=== PATIENT | male | born 1990 | race Caucasian/White ===

== ENCOUNTER 2019-09-03 23:13 | Emergency (ER) | payer BC, OTHER ==
[2019-09-03 23:42] VITALS: TEMP 98.2
[2019-09-03] MEDS ORDERED: PROPARACAINE 0.5% OPHTH DROPS 15 ML BTL LEFT EYE STA (23:44)
[2019-09-04] MEDS ORDERED: FLUORESCEIN STRIPS 1 MG STRIP LEFT EYE ONE (00:31)
[2019-09-04] MEDS ORDERED: CYCLOPENTOLATE 1% OPHTH SOLN 2 ML BTL LEFT EYE STA (00:45)
[2019-09-04] MEDS ORDERED: prednisoLONE ACETATE 1% OPHTH DROPS 5 ML BTL LEFT EYE STA (00:46)
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
[2019-09-04 01:55] VITALS: BP 139/86; PULSE 90; RESP 18
== END 2019-09-04 01:54 | disposition home or self-care (01) ==
LOC: EC 23:13
DX: S05.12XA Contusion of eyeball and orbital tissues, left eye, initial encounter (principal); Y24.0XXA Airgun discharge, undetermined intent, initial encounter
CPT/HCPCS: 99283

== ENCOUNTER → 2024-07-31 | Outpatient (CLI) | payer BC ==
[2024-07-31 16:39] LABS: Amphetamine Screen,Urine Not Detected (NotDetected); Barbiturate Screen,Urine Not Detected (NotDetected); Benzodiazepines Screen,Urine Not Detected (NotDetected); Cocaine Screen,Urine Not Detected (NotDetected); Methadone Screen, Urine Not Detected (NotDetected); Opiate Screen,Urine Not Detected (NotDetected); Oxycodone Screen, Urine Not Detected (NotDetected); Partial Thromboplastin Time 23.9 sec (22.0-30.0); Phencyclidine Screen,Urine Not Detected (NotDetected); Prothrombin Time 10.6 sec (10.0-12.5); Tricyclic Antidepressant,Urine Not Detected (NotDetected); Urn Cannabinoid Scrn Not Detected (NotDetected)
[2024-08-01 02:32] LABS: HCT 41.5 % (39.6-50.0); HGB 13.4 g/dL (13.0-17.0); MCH 28.2 pg (27.0-32.0); MCHC 32.3 g/dL (32.0-37.0); MCV 87.4 FL (80.0-97.0); NRBC Per 100 WBC 0 X 10*3/uL (0.00-0.01); Platelet Count 266 X 10*3/uL (140-440); RBC 4.75 X 10*6/uL (4.40-5.60); RDW 13.3 % (11.5-14.5); WBC 8.96 X 10*3/uL (4.50-10.00)
[2024-08-01 03:55] LABS: Prealbumin 22.7 mg/dL (18.0-42.0)
[2024-08-01 04:16] LABS: % Iron Saturation 11.69 (15.00-50.00); ALT 43 U/L (10-49); AST 32 U/L (14-35); Albumin 4.4 g/dL (3.8-4.9); Albumin/Globulin Ratio 1.47 Ratio (1.60-3.17); Alkaline Phosphatase 85 U/L (41-126); BUN/Creat Ratio 14.33 Ratio (12.00-20.00); Blood Urea Nitrogen 12.9 mg/dL (9.0-27.0); Calcium 9.6 mg/dL (8.7-10.3); Carbon Dioxide 23.6 mmol/L (21.6-31.8); Chloride 103 mmol/L (96-109); Chol/HDL Ratio 3.26 Ratio; Glucose 89 mg/dL (70-110); Iron 45 UG/DL (65-175); LDL Cholesterol,Calculated 63.2 mg/dL (0.0-131.0); Phosphorus 3.5 mg/dL (2.4-5.1); Potassium 4.3 mmol/L (3.5-5.5); Sodium 141 mmol/L (135-145); Total Bilirubin 0.2 mg/dL (0.3-1.2); Total Iron Binding Capacity 385 UG/DL (228-460); Total Protein 7.4 g/dL (6.2-8.2)
== END | disposition home or self-care (01) ==
LOC: LABPAT 14:48
PROVIDERS: ATTEND Surgery Plastic and Reconstructive Surgery
DX: E89.1 Postprocedural hypoinsulinemia (principal); D50.8 Other iron deficiency anemias; K91.2 Postsurgical malabsorption, not elsewhere classified; E44.0 Moderate protein-calorie malnutrition; E44.1 Mild protein-calorie malnutrition; E45 Retarded development following protein-calorie malnutrition; E55.9 Vitamin D deficiency, unspecified; K74.1 Hepatic sclerosis; N19 Unspecified kidney failure; T56.894A Toxic effect of other metals, undetermined, initial encounter; K50.90 Crohn's disease, unspecified, without complications
CPT/HCPCS: 80053; 80061; 80306; 80323; 82306; 82525; 82607; 82728; 82746; 83036; 83540; 83550; 83735; 83970; 84100; 84134; 84255; 84425; 84443; 84590; 84630; 85027; 85610; 85730; 93005

== ENCOUNTER → 2024-07-31 | Outpatient (CLI) | payer BC ==
[2024-07-31 13:43] VITALS: BP 131/88; PULSE 86; RESP 16; TEMP 98; BMI 49.4
--- NOTE | 2024-07-31 14:41 | P.HPBAR ---
Bariatric H&P - History & Physicial H&P Date: 07/31/24 History & Physicial: Visit/CC: New Pt Patient initial contact: Initial weight: 173.272 kg Initial weight in pounds: 382.00 Height: 6 ft 1.75 in Initial BMI: 49.4 Last weight: Current weight: 173.272 kg Current weight in pounds: 382.00 Current BMI: 49.4 Carmichael body weight (based on NIH guidelines): 85.502 kg Excess body weight loss: 0.0% The patient is a 34 year-old M who presents for Bariatric Assessment. Get full labs. Schedule for EGD. He is looking into the sleeve. Was thinking potential bypass. He is doing my fitness pal. Protein is under 62 gram daily. Past Medical History Past Medical History: No Reported History History of Any Multi-Drug Resistant Organisms: None Reported Past Surgical History: Hernia Repair Additional Past Surgical History / Comment(s): vastectomy Smoking Status: Unknown if ever smoked Surgical - Exam Vital Signs Temp Pulse Resp BP 98 F 86 16 131/88 07/31/24 13:40 07/31/24 13:40 07/31/24 13:40 07/31/24 13:40 Bariatric Checklist Checklist: Plan: Checklist: EGD: 1. Hiatal hernia: 2. H. Pylori: HgbA1c: Vitamin D: Smoking: Never smoker Primary care physician referral: Yanira Clark Psychiatry clearance: Cardiology clearance: Sleep study: Diet journal: VTE risk score: VTE risk level: Rehab needs at discharge:
== END ==
LOC: BARWHC3 13:00
PROVIDERS: ATTEND Surgery Plastic and Reconstructive Surgery
DX: E66.01 Morbid (severe) obesity due to excess calories (principal); Z68.42 Body mass index [BMI] 45.0-49.9, adult
CPT/HCPCS: 99202

== ENCOUNTER 2024-08-26 06:49 | Day surgery (SDC) | payer BC ==
[2024-08-22 15:43] VITALS: BMI 47.5
[~2024-08-26 06:49] MED LIST: LACTATED RINGERS 1,000 ML IV SCH; LIDOCAINE 1% (10MG/ML) FOR IV START INTRADERMA PRN
[2024-08-26] MEDS: IV FLUID CONTINUATION 1,000 ML IV ONE (07:09)
[2024-08-26 07:29] VITALS: TEMP 98.1
[2024-08-26] MEDS ORDERED: PROPOFOL 10 MG/ML 20 ML VIAL IV ONE (07:30)
--- NOTE | 2024-08-26 07:37 | P.GSHP ---
History of Present Illness H&P Date: 08/26/24 CHIEF COMPLAINT: GERD HISTORY OF PRESENT ILLNESS: The patient is a 34-year-old male who presents reports gastroesophageal reflux disease. Upper endoscopy was offered for further evaluation and management. PAST MEDICAL HISTORY: Please see list. PAST SURGICAL HISTORY: Please see list. MEDICATIONS: Please see list. ALLERGIES: Please see list. SOCIAL HISTORY: No illicit drug use FAMILY HISTORY: No reports of Crohn disease or ulcerative colitis. REVIEW OF ORGAN SYSTEMS: CONSTITUTIONAL: No reports of fevers or chills. GI: Denies any blood in stools or constipation. PHYSICAL EXAM: VITAL SIGNS: Stable GENERAL: Well-developed and pleasant in no acute distress. HEENT: No scleral icterus. Extraocular movements grossly intact. Moist buccal mucosa. NECK: Supple without lymphadenopathy. CHEST: Unlabored respirations. Equal bilateral excursions. CARDIOVASCULAR: Regular rate and rhythm. Distal 2+ pulses. ABDOMEN: Soft, nondistended. MUSCULOSKELETAL: No clubbing, cyanosis, or edema. ASSESSMENT: 1. Gastroesophageal reflux disease PLAN: 1. Recommend proceeding with an upper endoscopy Past Medical History Past Medical History: No Reported History History of Any Multi-Drug Resistant Organisms: None Reported Past Surgical History: Hernia Repair, Orthopedic Surgery Additional Past Surgical History / Comment(s): vastectomy, ankle bone spur Past Anesthesia/Blood Transfusion Reactions: No Reported Reaction Additional Past Anesthesia/Blood Transfusion Reaction / Comment(s): no blood transfusion Smoking Status: Unknown if ever smoked Medications and Allergies Home Medications Medication Instructions Recorded Confirmed Type No Known Home Medications 09/03/19 08/26/24 History Allergies Allergy/AdvReac Type Severity Reaction Status Date / Time No Known Allergies Allergy Verified 08/26/24 07:10 Surgical - Exam Vital Signs Temp Pulse Resp BP Pulse Ox 98.1 F 85 18 131/78 98 08/26/24 07:15 08/26/24 07:15 08/26/24 07:15 08/26/24 07:15 08/26/24 07:15
--- NOTE | 2024-08-26 07:55 | P.PCN ---
Date of Procedure: 08/26/24 Description of Procedure: PREOPERATIVE DIAGNOSIS: Gastroesophageal reflux disease. Morbid obesity. POSTOPERATIVE DIAGNOSIS: Gastroesophageal reflux disease. Morbid obesity. Gastritis. OPERATION: Esophagogastroduodenoscopy with cold forceps biopsies along esophagus, antrum and duodenum SURGEON: Modesta Wheatley MD ANESTHESIA: MAC. INDICATIONS: The patient is a 34-year-old male who presents with reflux disease. Benefits and risks of the procedure were described. Informed consent was obtained. DESCRIPTION: The patient was brought into the endoscopy suite and laid in the left lateral decubitus position. An Olympus gastroscope was passed along the posterior oropharynx down to the distal esophagus where the squamocolumnar junction was encountered at 44 cm from the incisors. The stomach was entered and no bile reflux was found. Additional findings are listed below. Biopsies with cold forceps were obtained of the antrum. The first through third portion of the duodenum was examined. Retroflexion of the scope confirmed Hill grade 2 lower esophageal valve. The squamocolumnar junction demonstrated LA grade B erosive esophagitis. The stomach was desufflated. The patient tolerated the procedure well. FINDINGS: Squamocolumnar junction 44 cm from the incisors. Diaphragmatic hiatus at 44 cm. Hill grade 2 lower esophageal valve. LA grade B erosive esophagitis. Biopsies obtained Biopsies obtained of the duodenum. Chronic gastritis with biopsies obtained. RECOMMENDATIONS: Upper endoscopy as needed. Plan - Discharge Summary Discharge Rx Participant: No New Discharge Prescriptions: No Action No Known Home Medications Discharge Medication List No Known Home Medications 09/03/19 [History] [place] [facility] [facility] [place] [facility] [place] [facility] 3:00 pm Patient Instructions/Handouts: *Surgery [facility] - (Anesthesia) Discharge Instructions Outpatient Surgery Discharge Disposition: HOME SELF-CARE
[2024-08-26 07:59] VITALS: RESP 16
[2024-08-26] MEDS: ACETAMINOPHEN TAB 500 MG TAB PO STA (08:10)
[2024-08-26 08:12] VITALS: BP 119/77; PULSE 83
== END 2024-08-26 08:24 | disposition home or self-care (01) ==
LOC: ORWHC2ENDO 06:49
PROVIDERS: ATTEND Surgery Plastic and Reconstructive Surgery
DX: K29.50 Unspecified chronic gastritis without bleeding (principal); K21.00 Gastro-esophageal reflux disease with esophagitis, without bleeding; E66.01 Morbid (severe) obesity due to excess calories; F17.290 Nicotine dependence, other tobacco product, uncomplicated; Z68.42 Body mass index [BMI] 45.0-49.9, adult
CPT/HCPCS: 43239; J2704; 88305

== ENCOUNTER → 2024-12-18 | Outpatient (CLI) | payer BC ==
[2024-12-18 15:52] LABS: ALT 49 U/L (10-49); AST 45 U/L (14-35); Albumin 4.3 g/dL (3.8-4.9); Alkaline Phosphatase 90 U/L (41-126); Blood Urea Nitrogen 11.9 mg/dL (9.0-27.0); Calcium 9.6 mg/dL (8.7-10.3); Carbon Dioxide 23.6 mmol/L (21.6-31.8); Chloride 103 mmol/L (96-109); Globulin 3.3 g/dL (1.6-3.3); Glucose 84 mg/dL (70-110); Potassium 4.7 mmol/L (3.5-5.5); Sodium 137 mmol/L (135-145); Total Bilirubin 0.5 mg/dL (0.3-1.2); Total Protein 7.6 g/dL (6.2-8.2)
[2024-12-18 15:58] LABS: Basophils # (A) 0.03 X 10*3/uL (0.00-0.10); Basophils % (A) 0.4 %; Eosinophils # (A) 0.08 X 10*3/uL (0.04-0.35); HCT 43.3 % (39.6-50.0); HGB 14.1 g/dL (13.0-17.0); Lymphocytes # (A) 2.29 X 10*3/uL (0.90-5.00); Lymphocytes % (A) 27.5 %; MCH 27.5 pg (27.0-32.0); MCHC 32.6 g/dL (32.0-37.0); MCV 84.4 FL (80.0-97.0); Mean Platelet Volume 9.9 FL (9.5-12.2); Monocytes # (A) 0.69 X 10*3/uL (0.20-1.00); Monocytes % (A) 8.3 %; NRBC Per 100 WBC 0 X 10*3/uL (0.00-0.01); Neutrophils % (A) 62.4 %; Platelet Count 264 X 10*3/uL (140-440); RBC 5.13 X 10*6/uL (4.40-5.60); RDW 13.4 % (11.5-14.5); WBC 8.32 X 10*3/uL (4.50-10.00)
== END | disposition home or self-care (01) ==
LOC: LABPAT 10:28
PROVIDERS: ATTEND Surgery Plastic and Reconstructive Surgery
DX: Z01.812 Encounter for preprocedural laboratory examination (principal)
CPT/HCPCS: 80053; 85025

== ENCOUNTER 2025-01-13 08:29 | Day surgery (SDC) | payer BC ==
--- NOTE | 2025-01-12 10:22 | P.PN ---
Progress Note - Text Progress Note Date: 01/12/25 Patient contacted due to surgery cancellation. Patient request to be first case of the day. Patient asked to come to the hospital at 8:30 AM.
[~2025-01-13 08:29] MED LIST changes: -LACTATED RINGERS 1,000 ML IV SCH; -LIDOCAINE 1% (10MG/ML) FOR IV START INTRADERMA PRN; +ONDANSETRON 4 MG/2 ML VIAL IVP PRN
[2025-01-13] MEDS ORDERED: LIDOCAINE 1% (10MG/ML) FOR IV START INTRADERMA PRN (08:39)
[2025-01-13] MEDS ORDERED: HYDROmorphone 0.5 MG/0.5 ML SYRINGE IVP PRN (08:39)
--- NOTE | 2025-01-13 09:06 | P.GSHP ---
History of Present Illness H&P Date: 01/13/25 CHIEF COMPLAINT: Morbid obesity HISTORY OF PRESENT ILLNESS: Mac Lundberg is a 34-year-old female who comes with lifelong morbid obesity. As result of morbid obesity,he has developed obstructive sleep apnea, osteoarthritis of the lower back and knees. He has completed medical supervised weight loss. He has completed medical supervised weight loss. He has completed bariatric assessment. He is looking into sleeve gastrectomy. At height of 6 feet 1.75 inches, ideal body weight is 188 pounds. He comes in 375 pounds from 385 pounds. He has lost 5% of expected weight loss. His body mass index is 47.0. He is 178 pounds overweight. PAST MEDICAL HISTORY: 1. Morbid obesity due to excess calories 2. Body mass index of 49.7 3. Osteoarthritis of the knees. 4. Osteoarthritis of the lower back. 5. Obstructive sleep apnea PAST SURGICAL HISTORY: 1. Vasectomy 2. Ankle bone spur removal 3. Hernia repair HOME MEDICATIONS: ALLERGIES: SOCIAL HISTORY: Past tobacco use. FAMILY HISTORY: No family history of ulcerative colitis disease or Crohn's disease. Family history of morbid obesity. No lupus in the family. No reports of stomach or esophageal cancer. REVIEW OF ORGAN SYSTEMS: CONSTITUTIONAL: At height of 6 feet 1.75 inches, ideal body weight is 188 pounds. He comes in 375 pounds from 385 pounds. He has lost 5% of expected weight loss. His body mass index is 47.0. He is 178 pounds overweight. HEENT: Denies any active troubles with vision or hearing. ENDOCRINE: Has diabetes. Has hypothyroidism. CARDIOVASCULAR: Past reports of palpitations or heart attacks or chest pain. RESPIRATORY: Has daytime somnolence. GASTROINTESTINAL: Denies any bright red blood per rectum. Has gastroesophageal reflux disease. MUSCULOSKELETAL: Has lower back pain and joint pain. Has osteoarthritis of the knees. NEURO: No headaches. No seizure disorders. PSYCH: Has depression. No suicidal ideation. RHEUMATOLOGIC: No lupus. No rheumatoid arthritis. HEMATOLOGIC: Denies any abnormal bleeding or bruising. No personal history of DVTs. SKIN: Has rash. No skin cancer. PHYSICAL EXAM: VITAL SIGNS: Height 6 foot 1.75 inches, weight 375 pounds. BMI 47.0 GENERAL: Well-developed in no acute distress. HEENT: No scleral icterus. Extraocular movements grossly intact. Hears conversational speech. No nasal drainage. NECK: Supple without lymphadenopathy. CHEST: Nonlabored respirations with equal bilateral excursions. CARDIOVASCULAR: Regular rate and regular rhythm. Distal 2+ pulses. ABDOMEN: Obese, soft, nontender, nondistended. MUSCULOSKELETAL: No clubbing, cyanosis. NEURO: No focal or lateralizing signs. Cranial nerves 2 through 12 grossly wi thin normal limits. PSYCH: Appropriate affect. Alert and oriented to person, place and time. SKIN: Good skin turgor. Well perfused. ASSESSMENT: 1. Morbid obesity due to excess calories 2. Body mass index of 49.7 3. Osteoarthritis of the knees. 4. Osteoarthritis of the lower back. 5. Obstructive sleep apnea 6. Vitamin D deficiency 7. Zinc deficiency 8. Iron deficiency PLAN: 1. Bariatric options between a sleeve, band and a Isaak-en-Y gastric bypass were reviewed in detail. The patient elected for a sleeve gastrectomy. Robotic assisted approach described. 2. The [place] [facility] Data was also reviewed with benefits and risks as described. 3. An 8 page second-generation bariatric consent form was reviewed in detail including potential of bleeding, infection, leaks, adequate weight loss, nutritional deficiencies which the patient demonstrated understanding of the risks. 4. A 2 week high-protein low caloric 800 kcal diet described to address hepatomegaly. 5. Preoperative labs including complete metabolic panel and CBC with type and screen recommended. 6. DVT prophylaxis per [place] [facility]. 7. Antibiotic prophylaxis. 8. Inpatient hospitalization anticipated for more than 2 nights. 9. All questions and concerns were addressed with the patient. 10. The patient is at elevated risk for perioperative complications with sleep apnea and hypertensive heart disease. 11. Overall, patient has expressed understanding of bariatric care including postoperative diet and commitment of lifestyle. Patient should benefit from surgical intervention for correction of morbid obesity. 12. He is elevated risk due to pre-existing comorbid conditions 13. For pain control, rectum abdominal wall block. 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 History of Any Multi-Drug Resistant Organisms: None Reported Past Surgical History: Hernia Repair, Orthopedic Surgery Additional Past Surgical History / Comment(s): vastectomy, ankle bone spur, wisdom teeth, EGD, Past Anesthesia/Blood Transfusion Reactions: No Reported Reaction Additional Past Anesthesia/Blood Transfusion Reaction / Comment(s): no blood transfusion Smoking Status: Never smoker - Past Family History Mother Family Medical History: No Reported History Medications and Allergies Home Medications Medication Instructions Recorded Confirmed Type Cholecalciferol [Vitamin D3 (25 25 mcg PO DAILY 01/07/25 01/07/25 History Mcg = 1000 Iu)] Ferrous Sulfate [Feosol] 325 mg PO DAILY 01/07/25 01/07/25 History Multivit,Calc,Min/FA/K1/Lycop 1 each PO DAILY 01/07/25 01/07/25 History [One-A-Day Men's Complete Tab] Allergies Allergy/AdvReac Type Severity Reaction Status Date / Time cat dander Allergy Unknown Verified 01/07/25 09:30
[2025-01-13] MEDS: IV FLUID CONTINUATION 1,000 ML IV ONE ×4 (09:16→14:23)
[2025-01-13] MEDS: LACTATED RINGERS 1,000 ML IV SCH (09:17)
[2025-01-13] MEDS: ONDANSETRON 4 MG/2 ML VIAL IVP ONE (09:42)
[2025-01-13] MEDS: DEXAMETHASONE SOD PHOSPHATE 4 MG/ML 1 ML VIAL IV ONE (09:42)
[2025-01-13] MEDS: CHLORHEXIDINE GLUCONATE 15 ML CUP MUCOUS MEM STA (09:43)
[2025-01-13] MEDS: ALVIMOPAN 12 MG CAPSULE PO PRN (09:43)
[2025-01-13] MEDS: ACETAMINOPHEN TAB 500 MG TAB PO PRN (09:43)
[2025-01-13] MEDS: fentaNYL (PF) 50 MCG/ML 2 ML AMP IVP PRN (09:46)
[2025-01-13] MEDS: MIDAZOLAM 2 MG/2 ML VIAL IV PRN (09:46)
[2025-01-13] MEDS: ENOXAPARIN 40 MG/0.4 ML SYRINGE SQ PRN (10:06)
--- NOTE | 2025-01-13 10:09 | P.ANPRN ---
Procedure Note - Anesthesia - Nerve Block Performed Bilateral Erector Spinae Single Time Out Performed: Yes Date of Procedure: 01/13/25 Procedure Start Time: 09:46 Procedure Stop Time: :57 Location of Patient: PreOp Indication: Acute Post-Operative Pain, Requested by Surgeon Sedation Type: Sedate with meaningful contact maintained Preparation: Sterile Prep Position: Prone Needle Types: Pajunk Needle Gauge: 21 Ultrasound used to visualize needle placement: Yes Ultrasound used to observe medication spread: Yes Injectate: 0.5% Ropivacaine (see comment for volume) (10 mL +10 mL of normal saline +4 mg dexamethasone per side) Blood Aspirated: No Pain Paresthesia on Injection Noted: No Resistance on Injection: Normal Image Stored and Saved: Yes Events: Uneventful and Well Tolerated
[2025-01-13] MEDS: PANTOPRAZOLE 40 MG/10 ML VIAL IVP STA (10:18)
[2025-01-13] MEDS ORDERED: PROPOFOL 10 MG/ML 20 ML VIAL IV ONE (10:36)
[2025-01-13] MEDS ORDERED: MIDAZOLAM 2 MG/2 ML VIAL ONE (10:36)
[2025-01-13] MEDS ORDERED: NEOSTIGMINE 1 MG/ML 10 ML VIAL ONE (10:36)
[2025-01-13] MEDS ORDERED: fentaNYL (PF) 50 MCG/ML 2 ML AMP ONE (10:36)
[2025-01-13] MEDS ORDERED: SUCCINYLCHOLINE CHLORIDE 200 MG/10 ML VIAL IV ONE (10:36)
[2025-01-13] MEDS ORDERED: DEXAMETHASONE SOD PHOSPHATE 4 MG/ML 1 ML VIAL ONE (10:36)
[2025-01-13] MEDS ORDERED: SODIUM CHLORIDE 0.9% (PF) 10 ML VIAL ONE (10:36)
[2025-01-13] MEDS ORDERED: GLYCOPYRROLATE 0.2 MG/ML 2 ML VIAL ONE (10:36)
[2025-01-13] MEDS ORDERED: ROPIVACAINE 5 MG/ML 30 ML VIAL ONE (10:36)
[2025-01-13] MEDS ORDERED: diphenhydrAMINE 50 MG/ML 1 ML VIAL ONE (10:36)
[2025-01-13] MEDS ORDERED: LIDOCAINE 1% INJ 10MG/ML (20 ML MDV) ONE (10:36)
[2025-01-13] MEDS ORDERED: ROCURONIUM 10 MG/ML (5 ML VIAL) IV ONE (10:36)
[2025-01-13] MEDS ORDERED: PHENYLEPHRINE-0.9% NACL SYG 1,000 MCG/10 ML SYRINGE ONE (10:36)
[2025-01-13] MEDS: ceFAZolin 3 GM in SODIUM CHLORIDE 0.9% 100 ML IVPB PRN (10:41)
[2025-01-13] MEDS: LIDOCAINE 1%-EPI 1:100,000 20 ML VIAL SQ ONE (11:05)
[2025-01-13] MEDS: LACTATED RINGERS 1,000 ML IV ONE (11:50)
[2025-01-13] MEDS ORDERED: diphenhydrAMINE 50 MG/ML 1 ML VIAL IVP PRN (12:41)
[2025-01-13] MEDS ORDERED: NALOXONE 0.4 MG/ML 1 ML VIAL IV PRN ×2 (12:41→16:58)
[2025-01-13] MEDS: DEXAMETHASONE SOD PHOSPHATE 10 MG/ML 1 ML VIAL IVP STA (12:45)
[2025-01-13] MEDS: SODIUM CHLORIDE 0.9% 1,000 ML IV SCH ×2 (12:46→18:22)
[2025-01-13] MEDS: ONDANSETRON 4 MG/2 ML VIAL IVP SCH (15:18)
[2025-01-13] MEDS: METOCLOPRAMIDE 5 MG/ML 2 ML VIAL IVP SCH (15:19)
[2025-01-13] MEDS: HYDROmorphone 1 MG/ML 1 ML SYRINGE IVP PRN (15:29)
[2025-01-13] MEDS: ALBUTEROL NEBULIZED 2.5 MG/3 ML INHALATION SCH (15:50)
--- NOTE | 2025-01-13 16:53 | P.PN ---
Progress Note - Text Progress Note Date: 01/13/25 Patient evaluated postoperatively. Patient is on the floor. Reports moderate fatigue. Per discussion with nurse, pain control 4 out of 10. He is on scheduled Zofran and Reglan. He has not had any oral intake. Recommend oral intake to best assess nausea. Additionally, additional 2 L bolus advised. Anticipated discharge in 12 to 24 hours.
[2025-01-13] MEDS: ACETAMINOPHEN IV (For NPO) 1,000 MG in EMPTY BAG 1 BAG IVPB SCH (18:19)
[2025-01-13] MEDS: HYOSCYAMINE ORAL DROPS 1.875 MG/15 ML BOTTLE PO SCH (18:20)
[2025-01-13] MEDS: 0.9% NACL WITH KCL 20 MEQ/L 1,000 ML IV SCH (18:21)
[2025-01-13] MEDS: SIMETHICONE 40 MG/0.6 ML DROPS 2,000 MG/30 ML BOTTLE PO SCH (18:21)
[2025-01-13] MEDS: ceFAZolin 3 GM in SODIUM CHLORIDE 0.9% 100 ML IVPB SCH (18:59)
[2025-01-13] MEDS: fentaNYL PCA 500 MCG/50 ML BAG IV SCH (22:01)
[2025-01-13] MEDS: PANTOPRAZOLE 40 MG/10 ML VIAL IVP SCH (22:09)
[2025-01-13] MEDS: DEXAMETHASONE SOD PHOSPHATE 4 MG/ML 1 ML VIAL IVP SCH (22:09)
[2025-01-14 02:37] VITALS: RESP 18
[2025-01-14 07:39] VITALS: BP 103/65; TEMP 98.3
[2025-01-14 08:22] LABS: Basophils # (A) 0 X 10*3/uL (0.00-0.10); Basophils % (A) 0 %; Eosinophils # (A) 0 X 10*3/uL (0.04-0.35); Eosinophils % (A) 0 %; HCT 38.5 % (39.6-50.0); HGB 12.3 g/dL (13.0-17.0); Lymphocytes # (A) 0.74 X 10*3/uL (0.90-5.00); Lymphocytes % (A) 6.3 %; MCH 27.5 pg (27.0-32.0); MCHC 31.9 g/dL (32.0-37.0); MCV 86.1 FL (80.0-97.0); Mean Platelet Volume 10.2 FL (9.5-12.2); Monocytes % (A) 3.4 %; NRBC Per 100 WBC 0 X 10*3/uL (0.00-0.01); Neutrophils # (A) 10.47 X 10*3/uL (1.80-7.70); Neutrophils % (A) 89.8 %; Platelet Count 237 X 10*3/uL (140-440); RBC 4.47 X 10*6/uL (4.40-5.60); RDW 13.4 % (11.5-14.5); WBC 11.67 X 10*3/uL (4.50-10.00)
[2025-01-14] MEDS: ENOXAPARIN 40 MG/0.4 ML SYRINGE SQ SCH (08:23)
[2025-01-14 08:49] LABS: Blood Urea Nitrogen 10.1 mg/dL (9.0-27.0); Calcium 9.1 mg/dL (8.7-10.3); Carbon Dioxide 20.7 mmol/L (21.6-31.8); Chloride 105 mmol/L (96-109); Magnesium 2.1 mg/dL (1.5-2.4); Phosphorus 2.9 mg/dL (2.4-5.1); Potassium 4.6 mmol/L (3.5-5.5); Sodium 137 mmol/L (135-145)
[2025-01-14 08:57] VITALS: PULSE 84
[2025-01-14] MEDS ORDERED: ENOXAPARIN 30 MG/0.3 ML SYRINGE SQ SCH (09:00)
--- NOTE | 2025-01-14 09:24 | P.DS ---
Providers Date of admission: 01/13/25 Expected date of discharge: 01/14/25 Attending physician: Modesta Wheatley Consults: 01/13/25 09:06 Consult Physician Routine Consulting Provider: [facility] Consult Reason/Comments: Abdominal wall block Do you want consulting provider notified?: Yes Primary care physician: Stated None Hospital Course: DISCHARGE DIAGNOSES: 1. Morbid obesity due to excess calories 2. Body mass index of 49.7 3. Osteoarthritis of the knees. 4. Osteoarthritis of the lower back. 5. Obstructive sleep apnea COURSE: Mac Lundberg is a 34-year-old female who comes with lifelong morbid obesity. As result of morbid obesity,he has developed obstructive sleep apnea, osteoarthritis of the lower back and knees. He has completed medical supervised weight loss. He has completed medical supervised weight loss. He has completed bariatric assessment. He is looking into sleeve gastrectomy. He underwent sleeve gastrectomy 01/13/2025 and has pre-existing obstructive pulmonary disease which puts him elevated risk. Patient was observed overnight. He reports no nausea. He does report appropriate chest pressure from swallows which improved. Clinically, patient reports feeling much better today and stable for discharge with immediate follow-up in 24 hours with the bariatric center for outpatient esophagram. All questions were addressed with the patient's family. Patient Condition at Discharge: Good Plan - Discharge Summary Discharge Rx Participant: Yes New Discharge Prescriptions: New bisacodyL [Dulcolax] 5 mg PO DAILY PRN #10 tab PRN Reason: Constipation Simethicone 40 mg/0.6 ml Drops [Mylicon Drops] 40 mg PO PCHS PRN #30 ml PRN Reason: Gas Omeprazole [PriLOSEC] 40 mg PO DAILY #30 cap Acetaminophen Tab [Tylenol Tab] 1,000 mg PO Q6HR PRN #30 tablet PRN Reason: Pain Ondansetron Odt [Zofran Odt] 4 mg PO Q8HR PRN #9 tab PRN Reason: Nausea ursodioL [Ursodiol] 300 mg PO BID 30 Days #60 capsule Discontinued Ferrous Sulfate [Iron (65 MG Elemental)] 325 mg PO DAILY Multivit,Calc,Min/FA/K1/Lycop [One-A-Day Men's Complete Tab] 1 each PO DAILY Cholecalciferol [Vitamin D3 (25 Mcg = 1000 Iu)] 25 mcg PO DAILY Discharge Medication List Acetaminophen Tab [Tylenol Tab] 1,000 mg PO Q6HR PRN #30 tablet 01/13/25 [Rx] Omeprazole [PriLOSEC] 40 mg PO DAILY #30 cap 01/13/25 [Rx] Ondansetron Odt [Zofran Odt] 4 mg PO Q8HR PRN #9 tab 01/13/25 [Rx] Simethicone 40 mg/0.6 ml Drops [Mylicon Drops] 40 mg PO PCHS PRN #30 ml 01/13/25 [Rx] bisacodyL [Dulcolax] 5 mg PO DAILY PRN #10 tab 01/13/25 [Rx] ursodioL [Ursodiol] 300 mg PO BID 30 Days #60 capsule 01/13/25 [Rx] Follow up Appointment(s)/Referral(s): Modesta Wheatley MD [STAFF PHYSICIAN] - 01/15/25 9:00 am Patient Instructions/Handouts: *Sur[facility] - (Anesthesia) Discharge Instructions Outpatient Surgery, Nutrition after Bariatric Surgery (GEN), Laparoscopic Sleeve Gastrectomy (DC) Activity/Diet/Wound Care/Special Instructions: Liquid diet only for 2 weeks until January 27 No lifting over 4 pounds in 4 weeks, February 13January Shower. No soaking in bath tubs 2 weeks, until January 27 Please notify your surgeon if you develop nausea and vomiting including new onset of abdominal pain. Continue to use incentive spirometry to prevent pneumonias. Please continue to ambulate at home to prevent blood clots in legs. Follow-up at the bariatric center. May shower. Dressings to be discontinued by surgeon in the office. Drink 64 oz of fluid daily. Start protein shakes on . Notify bariatric center for temp over 101.0, increased pain, drainage from incisions. No straws or carbonated beverages. Liquid diet only. Sugar content should be less than 6 g to avoid dumping syndrome. Take MOM for constipation. CRUSH, OPEN, OR CUT TABLETS LARGER THAN A SIZE OF A TIC TAC Discharge Disposition: HOME SELF-CARE
[2025-01-14 10:03] VITALS: BMI 47.0
--- NOTE | 2025-01-15 11:18 | P.OP ---
Date of Procedure: 01/13/25 Description of Procedure: SURGEON: CAROLINA BARRETT MD PREOPERATIVE DIAGNOSES: 1. Morbid obesity due to excess calories 2. Body mass index of 49.7 3. Osteoarthritis of the knees. 4. Osteoarthritis of the lower back. 5. Obstructive sleep apnea 6. Vitamin D deficiency 7. Zinc deficiency 8. Iron deficiency POSTOPERATIVE DIAGNOSES: 1. Morbid obesity due to excess calories 2. Body mass index of 49.7 3. Osteoarthritis of the knees. 4. Osteoarthritis of the lower back. 5. Obstructive sleep apnea 6. Vitamin D deficiency 7. Zinc deficiency 8. Iron deficiency OPERATION: 1. Robotic assisted daVinci Xi laparoscopic sleeve gastrectomy with 40-Malaysian bougie, multiport. 2. Intraoperative esophagogastroduodenoscopy. ANESTHESIA: Gen. local anesthetic ESTIMATED BLOOD LOSS: 50 mL SPECIMENS REMOVED: Sleeve gastrectomy COMPLICATIONS: None. FINDINGS: 1. Negative intraoperative esophagogastrojejunoscopy leak test. 2. No large hiatus hernia. 3. Total of 6 staplers used including 6 - 60 mm green and blue robot malik used to create the gastric sleeve. 4. Sleeve gastrectomy 28 x 5 cm 5. Mild hepatomegaly INDICATIONS: Mac Lundberg is a 34-year-old female who comes with lifelong morbid obesity. As result of morbid obesity,he has developed obstructive sleep apnea, osteoarthritis of the lower back and knees. He has completed medical supervised weight loss. He has completed medical supervised weight loss. He has completed bariatric assessment. He is looking into sleeve gastrectomy. At height of 6 feet 1.75 inches, ideal body weight is 188 pounds. He comes in 375 pounds from 385 pounds. He has lost 5% of expected weight loss. His body mass index is 47.0. He is 178 pounds overweight. All surgical options for morbid obesity had been described using the [place] bariatric surgery collaborative comorbidity resolution including complication risk score. A second-generation bariatric consent form was described in detail including the possibility of protein malnutrition, leaks, gastric stricture, venous thrombosis, gastroesophageal reflux disease, need for further surgery for which he demonstrated understanding. Benefits and risks of the procedure were described at length. Informed consent was obtained. DESCRIPTION: The patient was brought into the operating room theater. Preoperatively he had received Lovenox subcutaneously for DVT prophylaxis. Additionally he had Peridex oral solution as an oral decontaminant. After general induction, the abdomen was prepped and draped in standard sterile fashion. An Ioban draping was placed along the abdomen. No sears catheter was placed. A robotic da [place] Xi system was prepped and primed. At 15 cm from the xiphoid, proposed port sites were marked with indelible marker along the anterior axillary line bilaterally, mid axillary line bilaterally with each ports were marked 10 to 15 cm from each other. The anesthesiologist assistant port was marked along the left lateral abdominal wall. The robotic stapler port was marked for the right midclavicular line. A 5 mm 0 degrees laparoscopic trocar entry was performed along the left upper quadrant. The abdomen was insufflated to 15 mmHg pressure he tolerated well. Diagnostic laparoscopy demonstrated no injury to bowel, viscera, or mesentery. The liver surface was remarkable for mild fatty liver disease. No injury had occurred to the small bowel or viscera. Along the hiatus no recurrent hiatal hernia was found. Moderate bleeding along the skin was identified. A 8 mm port was placed along the right upper abdominal wall after exchanging the 5 mm port. A separate 8 mm port was placed along the left lateral abdominal wall. Please note that the ports were placed at least 20 cm away from the target anatomy. Care was taken to check each robotic arms were safely away from collision with the bed or the patient. At the epigastrium, a medium sized Dena liver retractor was placed under direct visualization with the [place] [employer] Steward/Stewardess placed under the right shoulder of the patient. Next, 12-mm robot stapler port was placed along the right upper quadrant. The camera 8-mm port was maintained along the epigastrium. The patient was repositioned in reverse Trendelenburg position at 25-degrees after lowering the bed. The robot was docked along the left side of the patient. Using a grasper for arm 4, a veseel sealer for arm 3, including grasper for arm 1, the robotic system was docked and primed as described. Instruments were interchanged by the anesthesiologist assistant for stapler loads. The camera was placed at 30-degrees down. I had sat at the console. The pylorus was identified and 6 cm proximally along the greater curvature of the stomach, the short gastrics were mobilized upwards to the angle of His using a vessel sealer. Hemostasis was excellent during this portion of the procedure. Next, the upper pole of the stomach was adherent to the left shane, which was gently dissected free using atraumatic grasper. The nursing it architecture consultant placed a 40-Malaysian blunted tip bougie into the stomach. Robotic stapler green and blue loads 60 mm x 6 were used to create the sleeve. Initial firing was across the antrum of the stomach towards the angle of His. The staple line was completely hemostatic and linear without corkscrewing. Hemostasis was excellent. The space from the angularis incisura of the sleeve was approximately 4 cm. I then went to the head of the bed to perform the intraoperative esophagogastroduodenoscopy leak test. The upper pole of the stomach was bathed using normal saline solution. The scope was withdrawn with careful inspection along the staple line for which no leaks were found along the entire length. Ad ditionally, the sleeve was completely hemostatic without any encroachment along the angularis incisura. Its topology was a soft "J". No stricture was encountered upon placement of the scope. The GI tract was desufflated. The patient tolerated this portion of the procedure well. The scope was completely withdrawn. The robot was undocked. I then rescrubbed into case, whereby the irrigation fluid was aspirated from the abdominal cavity. Tisseel fibrin sealant was placed along the staple length. Once dried the Dena liver retractor was removed. Attention was now brought to removal of the specimen. The distal end of the sleeve gastrectomy specimen was brought out through the 12 mm port at the left upper quadrant. The specimen was gently removed en total, corresponding to 28 cm x 5 cm sleeve gastrectomy specimen. No contamination had occurred during this process. All instruments and pneumoperitoneum including irrigation fluid was removed from the abdominal cavity. The 12 mm port site was irrigated with warm normal saline solution and diluted hydron peroxide. The 12-mm port site was reapproximated using 0 Vicryl and Eliot-Kaity of the left upper quadrant. The final incisions were closed using subcuticular interrupted suture of 4-0 Monocryl. Dermabond was applied to the skin once the skin had been cleansed. OptiFoam dressing was placed along the stomach extraction site. At the end of the procedure, needle, sponge, and instrument count was verified correct by the surgical appliance fitter. The patient was taken to the postanesthesia care unit in stable condition. He had tolerated the procedure well. Intraoperative films and findings were reviewed with the patient's family.
== END 2025-01-14 10:23 | disposition home or self-care (01) ==
LOC: OR 08:29 → EDSTATUS 09:30 → 4SSUR 12:10 → OR 01-14 10:23
PROVIDERS: ATTEND Surgery Plastic and Reconstructive Surgery
DX: K29.50 Unspecified chronic gastritis without bleeding (principal); K31.7 Polyp of stomach and duodenum; E66.01 Morbid (severe) obesity due to excess calories; E55.9 Vitamin D deficiency, unspecified; E61.1 Iron deficiency; G47.33 Obstructive sleep apnea (adult) (pediatric); M17.0 Bilateral primary osteoarthritis of knee; Z68.42 Body mass index [BMI] 45.0-49.9, adult; Z83.49 Family history of other endocrine, nutritional and metabolic diseases; Z98.890 Other specified postprocedural states; Z79.899 Other long term (current) drug therapy
CPT/HCPCS: 43775; S2900; 64468; 80051; 82310; 82565; 83735; 84100; 84520; 85025; 86850; 86900; 86901; 88307; 94640; 94760

== ENCOUNTER → 2025-01-15 | Outpatient (CLI) | payer BC ==
--- NOTE | 2025-01-15 11:48 | FL ---
EXAMINATION TYPE: FL barium swallow DATE OF EXAM: 01/15/2025 LIMITED UGI: CLINICAL INDICATION: Male, 34 years old with history of R13.10 dysphagia, morbid obesity with gastric sleeve surgery 2 days earlier. TECHNIQUE: Limited esophagram is performed utilizing 2oz of Isovue-370. A total of 23 seconds of flu oroscopic time was utilized during procedure and 37 images obtained. TOTAL DAP = n/p. COMPARISON: None. FINDINGS: The patient swallowed contrast without difficulty or delay. Esophageal peristalsis and mo tility are within normal limits. There is good flow of contrast along the diaphragmatic hiatus into proximal stomach and subsequent mild delay in flow into gastric sleeve through proximal anastomosis. There is good flow from distal anastomosis into pylorus and duodenal sweep. Patient remains asymptoma tic. There is no evidence of contrast extravasation to suggest leak. IMPRESSION: No evidence of leak or significant obstruction status post recent gastric sleeve surgery. [facility], , 01/15/2025 11:45 AM
== END | disposition home or self-care (01) ==
LOC: RADFLMAIN 10:35
PROVIDERS: ATTEND Surgery Plastic and Reconstructive Surgery
DX: R13.10 Dysphagia, unspecified (principal); E66.01 Morbid (severe) obesity due to excess calories
CPT/HCPCS: 74220

== ENCOUNTER → 2025-01-22 | Outpatient (CLI) | payer BC ==
[2025-01-22 13:53] VITALS: BP 114/74; PULSE 74; RESP 16; TEMP 97.9; BMI 46.3
--- NOTE | 2025-01-22 14:36 | P.BASOAP ---
Subjective Progress Note Date: 01/22/25 No belly pain. Drinking water. Having BMs everyother day. Lost 40 pounds in 1 month. 80 grams now. Need 100 to 120 gram. No GERD. Chicken tenderloins. Food journal needed. USe current weight to get protein. He is english and eats spaghetti. Zucchini noodles. 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 Objective - Vital Signs Vital signs: Vital Signs Temp 97.9 F 01/22/25 13:41 Pulse 74 01/22/25 13:41 Resp 16 01/22/25 13:41 BP 114/74 01/22/25 13:41 Pulse Ox FiO2 Intake & Output 01/21/25 01/22/25 01/22/25 18:59 06:59 18:59 Weight 162.386 kg Assessment/Plan Plan: Date: 01/22/25 Initial Weight: 173.272 kg Initial BMI: 49.4 Current Weight: 162.386 kg Current BMI: 46.3 Type of Surgery: Total Volume in Band: Previous Volume: Volume Removed: Volume Added: Band Size:
--- NOTE | 2025-01-24 10:27 | P.PN ---
Progress Note - Text Progress Note Date: 01/24/25 Patient contacted as he has a DOT physical exam medical clearance form. Patient reports that his lifting is barely 5 pounds. He reports caution with lifting anything greater then 5 to 10 pounds. 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
== END ==
LOC: BARWHC3 12:59
PROVIDERS: ATTEND Surgery Plastic and Reconstructive Surgery
DX: E66.01 Morbid (severe) obesity due to excess calories (principal); Z91.048 Other nonmedicinal substance allergy status; Z68.42 Body mass index [BMI] 45.0-49.9, adult
CPT/HCPCS: 97802; 99211

== ENCOUNTER → 2025-02-12 | Outpatient (CLI) | payer BC ==
[2025-02-12 13:39] VITALS: BP 120/75; PULSE 98; RESP 16; TEMP 97.8; BMI 43.8
--- NOTE | 2025-02-12 13:43 | P.BASOAP ---
Subjective Progress Note Date: 02/12/25 He lost 20 pounds in 3 weeks. He lost 70 pounds in 2 months. Feel great. He is losing his ring for weight. No heartburn. No refill. Bowels are ok. Only 1 month. Get back on track. Blood work is due for vitamin deficiency. Objective - Vital Signs Vital signs: Vital Signs Temp 97.8 F 02/12/25 13:32 Pulse 98 02/12/25 13:32 Resp 16 02/12/25 13:32 BP 120/75 02/12/25 13:32 Pulse Ox FiO2 Intake & Output 02/11/25 02/12/25 02/12/25 18:59 06:59 18:59 Weight 153.768 kg Assessment/Plan Plan: Date: 02/12/25 Initial Weight: 173.272 kg Initial BMI: 49.4 Current Weight: 153.768 kg Current BMI: 43.8 Type of Surgery: Total Volume in Band: Previous Volume: Volume Removed: Volume Added: Band Size:
[2025-02-12 14:52] LABS: INR 1.1 (<1.2); Partial Thromboplastin Time 23.6 sec (22.0-30.0); Prothrombin Time 11.7 sec (10.0-12.5)
[2025-02-12 18:15] LABS: HCT 39.6 % (39.6-50.0); MCH 27.7 pg (27.0-32.0); MCHC 32.8 g/dL (32.0-37.0); MCV 84.4 FL (80.0-97.0); Mean Platelet Volume 10.3 FL (9.5-12.2); NRBC Per 100 WBC 0 X 10*3/uL (0.00-0.01); Platelet Count 247 X 10*3/uL (140-440); RBC 4.69 X 10*6/uL (4.40-5.60); RDW 13.6 % (11.5-14.5); WBC 8.27 X 10*3/uL (4.50-10.00)
[2025-02-12 18:38] LABS: Prealbumin 19.8 mg/dL (18.0-42.0)
[2025-02-12 19:53] LABS: % Iron Saturation 11.24 (15.00-50.00); ALT 31 U/L (10-49); AST 28 U/L (14-35); Albumin 4.6 g/dL (3.8-4.9); Albumin/Globulin Ratio 1.64 Ratio (1.60-3.17); Alkaline Phosphatase 85 U/L (41-126); BUN/Creat Ratio 14.89 Ratio (12.00-20.00); Blood Urea Nitrogen 13.4 mg/dL (9.0-27.0); Calcium 9.8 mg/dL (8.7-10.3); Carbon Dioxide 21.8 mmol/L (21.6-31.8); Chloride 108 mmol/L (96-109); Chol/HDL Ratio 2.86 Ratio; Globulin 2.8 g/dL (1.6-3.3); Glucose 83 mg/dL (70-110); Iron 39 UG/DL (65-175); LDL Cholesterol,Calculated 68.3 mg/dL (0.0-131.0); Potassium 4.3 mmol/L (3.5-5.5); Sodium 143 mmol/L (135-145); Total Bilirubin 0.4 mg/dL (0.3-1.2); Total Iron Binding Capacity 347 UG/DL (228-460); Total Protein 7.4 g/dL (6.2-8.2)
[2025-02-12 20:30] LABS: Magnesium 1.9 mg/dL (1.5-2.4); Phosphorus 2.6 mg/dL (2.4-5.1)
[2025-02-13 13:09] LABS: Zinc, Serum 84 ug/dL (60-130)
[2025-02-14 05:37] LABS: Vitamin A 38 ug/dL (38-106)
[2025-02-15 23:37] LABS: Selenium 140 mcg/L (63-160)
[2025-02-17 06:39] LABS: Vit B1(Thiamine) 53 ug/L (38-122)
== END ==
LOC: BARWHC3 13:07
PROVIDERS: ATTEND Surgery Plastic and Reconstructive Surgery
DX: E66.01 Morbid (severe) obesity due to excess calories (principal); E89.1 Postprocedural hypoinsulinemia; E44.0 Moderate protein-calorie malnutrition; D50.8 Other iron deficiency anemias; E45 Retarded development following protein-calorie malnutrition; K74.1 Hepatic sclerosis; N19 Unspecified kidney failure; T56.894A Toxic effect of other metals, undetermined, initial encounter; K50.90 Crohn's disease, unspecified, without complications; K91.2 Postsurgical malabsorption, not elsewhere classified; Z71.3 Dietary counseling and surveillance; E56.9 Vitamin deficiency, unspecified; Z68.41 Body mass index [BMI] 40.0-44.9, adult; Z91.048 Other nonmedicinal substance allergy status
CPT/HCPCS: 80053; 80061; 82306; 82525; 82607; 82728; 82746; 83540; 83550; 83735; 83970; 84100; 84134; 84255; 84425; 84443; 84590; 84630; 85027; 85610; 85730; 97803; 99211